=== PATIENT | male | born 1950 ===

== ENCOUNTER 2020-07-10 17:51 | Inpatient (IN) | payer MEDICARE ==
[2020-07-10 18:36] LABS: BASOPHILS 0.1 % (0-2); EOSINOPHILS 0.8 % (0-7); HEMATOCRIT 45.6 % (42.0-54.0); HEMOGLOBIN 15.3 g/dL (13.5-17.5); IMMATURE GRANULOCYTES 0.1 % (0-5); LYMPHOCYTES 33.4 % (15-50); MCH 32.1 pg (26.0-34.0); MCHC 33.6 g/dL (31.0-37.0); MCV 95.8 fL (80.0-100.0); MEAN PLATELET VOLUME 9.4 fL (7.4-10.4); MONOCYTES 6.2 % (2-11); NEUTROPHILS 59.4 % (40-80); PLATELET COUNT 310 10x3/uL (130-400); RBC 4.76 10x6/uL (4.20-6.10); RDW 13.5 % (11.5-14.5); WBC 8.9 10x3/uL (4.8-10.8)
[2020-07-10 18:53] LABS: ANION GAP 11.7 mmol/L (8-16); CALCIUM 9.3 mg/dL (8.5-10.1); CREATININE - SERUM 1.1 mg/dL (0.6-1.3); POTASSIUM - SERUM 3.7 mmol/L (3.5-5.1)
[2020-07-10 19:09] LABS: ALBUMIN 4.2 g/dL (3.4-5.0); BILIRUBIN - TOTAL 0.9 mg/dL (0.2-1.3); MAGNESIUM - SERUM 1.9 mg/dL (1.8-2.4); PROTEIN - SERUM 7.4 g/dL (6.4-8.2)
[2020-07-10 19:17] LABS: BILIRUBIN NEGATIVE (NEGATIVE); KETONE NEGATIVE (NEGATIVE); NITRITE NEGATIVE (NEGATIVE); UROBILINOGEN NORMAL mg/dL (< 2)
[2020-07-10 19:25] LABS: UDS - AMPHET NEGATIVE QUAL (NEGATIVE); UDS - BARB NEGATIVE QUAL (NEGATIVE); UDS - BENZO NEGATIVE QUAL (NEGATIVE); UDS - COCAINE NEGATIVE QUAL (NEGATIVE); UDS - OPIATE NEGATIVE QUAL (NEGATIVE); UDS - PCP NEGATIVE QUAL (NEGATIVE); UDS - THC NEGATIVE QUAL (NEGATIVE)
--- NOTE | 2020-07-10 22:14 | NUR ---
NEW ADNIT TO DR HERRMANN FROM [facility] RELATED TO DEPRESSION AND HALLUCINATIONS. PATIENT LIVES WITH PARTNER AT HOME. RECEIVED VIA WHEELCHAIR WITH ED STAFF AND HIS PARTNER AT HIS SIDE. CALM AND COOPERATIVE UPON ADMIT. PARTNER "POA" STATES HE IS A FULL CODE. PT IS RESTING IN BED WITH EYES OPEN AT THIS TIME.
[2020-07-10 22:22] VITALS: BP 97/75
[2020-07-10 22:35] VITALS: BP 96/75
[2020-07-10] MEDS ORDERED: FISH OIL 1,0001 CA1 PO (22:37)
[2020-07-10] MEDS ORDERED: CEREFOLIN TAB1 TAB PO (22:38)
[2020-07-10] MEDS ORDERED: PROTONIX40 MG PO (22:39)
[2020-07-10] MEDS ORDERED: NAPROSYN500 MG PO (22:40)
[2020-07-10 23:41] LABS: LDL-HDL RATIO 2.5 ratio (1.5-3.5)
[2020-07-11 09:22] VITALS: Wt 94.7 kg
[2020-07-11 09:31] VITALS: BP 140/70
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
[2020-07-11 20:13] VITALS: BP 101/68
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
--- NOTE | 2020-07-11 23:22 | NUR ---
B) Patient is alert and oriented to self, confused and calm this shift, no aggression noted, I) Administered scheduled medications as ordered, monitored for safety R) Medication compliant, now sleeping quietly in bed, P) Continue plan of care,
[2020-07-12 06:11] LABS: RAPID PLASMA REAGIN Non Reactive (Non Reactive)
--- NOTE | 2020-07-12 08:25 | PSY ---
PATIENT NAME:SHERRY SORENSEN MEDICAL RECORD: [id number] : 48 LOCATION:[facility] ADMISSION DATE: 07/10/20 ACCOUNT: [id number] PSYCHIATRIC EVALUATION DATE OF EVALUATION: 07/11/20 IDENTIFYING DATA: The patient is 70 years old and he is admitted to the hospital on a voluntary basis. CHIEF COMPLAINT: Confusion. HISTORY OF PRESENT ILLNESS: The patient was brought to the Emergency Department experiencing visual hallucinations and confusion. It was believed that the symptoms were related to an antidepressant he had recently been started on, but I think that they were just exacerbated by that. The patient has clear evidence of cognitive impairment and is disorganized, confabulating and delusional. He denies that he would seek to kill himself, although he reportedly had made recent statements to that effect. 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 PAST MEDICAL HISTORY: Unremarkable. The patient has no chronic medical illness other than some mild dyspepsia and generalized joint discomfort associated with aging. 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 This did not interfere with his social or occupational functioning. He stopped drinking about a year ago. FAMILY HISTORY: Unknown. ALLERGIES: ATIVAN AND WELLBUTRIN, ALTHOUGH IN ACTUALITY THE WELLBUTRIN JUST SIMPLY WAS NOT TOLERATED, IT IS NOT A TRUE ALLERGY AND I AM NOT SURE WHAT HAPPENED WITH THE ATIVAN. CURRENT MEDICATIONS: Naprosyn p.r.n., fish oil, Protonix, and vitamin B12. SOCIAL HISTORY: The patient is originally from [place], [place]. 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 After that, he was accepted to the [employer] from which he graduated with an ANGIE. 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 He is and he about 11 years ago. He has been living with another woman since then and she is his POA. He functioned at a very high level of social and occupationally despite his drinking through his adult life. MENTAL STATUS EXAMINATION: The patient is awake, alert and oriented to person and place, but not fully to time or situation. His mood is flat. His affect is constricted. Thought processes are disorganized and there is clear delusional content. Memory, concentration, and abstraction abilities are impaired. He denies that he would seek to harm himself or others. He denies overt psychotic symptoms, although he clearly is displaying them. ASSESSMENT: AXIS I: Major neurocognitive disorder of the Alzheimer's type. AXIS II: None. AXIS III: Osteoarthritis. AXIS IV: Moderate stressors. AXIS V: Global assessment of functioning is 35. PLAN: At this time, the patient is admitted to the hospital secondary to confusion with associated perceptual changes. This is related to an underlying dementing illness. The type is not entirely certain, most likely it is Alzheimer's; however, there is clearly a substantial alcohol component to this. TRANSINT:[id number] Voice Confirmation ID: [id number] DOCUMENT ID: [id number] ELSA HERRMANN MD at 0825 CC: [id number] DICTATION DATE: 07/11/20 1546 HYDROCRANE OPERATOR: 07/11/20 1615 [facility] [address] [place] [address]
[2020-07-12 08:42] VITALS: BP 117/77
--- NOTE | 2020-07-12 11:14 | NUR ---
The patient is awake and he is confused, he has poor insight into his situation. He has poor short term memory, he is talking nonsensical. He has asked this nurse "What is your social security number?" Then he tells you his number. He said he did not want to take his medication until he spoke to Rosetta and it had to come from Dr. Brown. He looked at his pills then he looked at another nurse and said "She's already given me the medication." The other nurse has not given her any medication. Provide prescribed meds. The patient refused his meds, will crush and put them in his coffee. He likes coffee, but he took one sip and that is all. Called Dr. Barclay and got a nicotine patch order. The patient ambulates, toilets, and feeds himself. Continue POC.
--- NOTE | 2020-07-12 11:32 | NUR ---
nurse spoke with pts at this time. passcode given. nruse gave update on pts behavior. nurse noted pt being paranoid about staff members, taking medications and asking for social security numbers. staff attemptedt to redirect pt and unable to do so. pt stated he needed to speak with baltazar before he could do anyting. she inquired if he knew it was visitation today?" nurse stated he was very confused and did not understand what day of the week it was. he would be okay to have visitors at that time today. she verbalizied understanding.
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
--- NOTE | 2020-07-12 15:00 | NUR ---
The patient is calming, he sat in a recliner and closed his eyes. Continue to monitor.
--- NOTE | 2020-07-12 16:30 | NUR ---
The patient's spouse is here and she said "He still doesn't have a nicotine patch." Explained to her that he is refusing. Did go and get the nicotine patch while the spouse is here and she moved his shirt back and the nicotine patch was applied to his upper back in between his shoulder blades.
[2020-07-12 20:09] VITALS: BP 128/75
--- NOTE | 2020-07-13 01:15 | NUR ---
B) Patient is alert and oriented to person, calm and cooperative this shift, confused and does not understand why he is here. I) Administered scheduled medications as ordered, monitored for safety R) medication compliant, no hallucinations noted, P) Continue plan of care.
--- NOTE | 2020-07-13 07:54 | NUR ---
The patient is awake, he is confused, he knows his name. He has poor insight into his situation. He ambulates, eats, and toilets independently. Provide prescribed meds. The patient refuses, but if crushed in food or drink he does take them. He has not shown aggression at this time. Monitor his mood and behavior. Continue POC.
--- NOTE | 2020-07-13 08:38 | PN ---
PATIENT:SHERRY SORENSEN MEDICAL RECORD: [id number] LOCATION:[facility] ADMISSION DATE: 07/10/20 PROGRESS NOTE DATE OF SERVICE: 07/12/2020 SUBJECTIVE: The patient's case was discussed with staff. He has no new complaint. OBJECTIVE: The patient is calmer now that he has his Habitrol patch. He is very confused. He is only partially oriented. He has not required p.r.n. medication today. ASSESSMENT: Dementia. PLAN: Current medicines have been reviewed and will be maintained. His prognosis is very guarded. I do believe his dementia is advanced. TRANSINT:[id number] Voice Confirmation ID: [id number] DOCUMENT ID: [id number] ELSA HERRMANN MD at 0838 CC: [id number] DICTATION DATE: 07/12/201735 CLINIC OFFICE COORDINATOR: 07/12/20 174 ADM IN [facility] [address] [id number]
--- NOTE | 2020-07-13 09:16 | NUR ---
BROADCASTING EQUIPMENT MECHANIC CALLED PATIENT'S POAMORAIMA, tO ALERT ON HOW PATIENT REACTED TO 3 PAGE LETTER SHE DROPPED OFF. BROADCASTING EQUIPMENT MECHANIC EXPLAINED THE DISEASE PROCESS, COMMUNICATION STYLES NEEDED FOR DISEASE,AND THE WAY THE PATIENT PROCESSES INFORMATION. AFTER RECEIVING THE LETTER PATIENT THOUGHT poa WAS GOING TO DIVORCE HIM, STARTED PACING AND BECAME ESCALATED. BROADCASTING EQUIPMENT MECHANIC ADVISED THAT LETTERS AND DROP-OFFS BETWEEN VISITATIONS WOULD NOT BE ADVISABLE AT THIS TIME. POA STATED SHE DID NOT KNOW WHAT WAS GOING ON. BROADCASTING EQUIPMENT MECHANIC EXPLAINED THAT SHE COULD ASK FOR MD CONVERSATION AT ANY TIME AND GET UPDATE ON PATIENT FROM A NURSE AT ANY TIME ON THE UNIT. POA VOICED UNDERSTANDING.
[2020-07-13 09:36] VITALS: BP 135/93
--- NOTE | 2020-07-13 10:41 | NUR ---
The patient is getting very anxious, apparently his wrote him a letter and it upset the patient and now he is trying to get out of here, he is pacing, checking the doors and saying his is going to divorce him. The letter has no indication of divorce, but it does talk about his recent behavior changes related to his neurocognitive disorder. Provided Haldol 2 mg po crushed in his coffee and he drank it all. Will monitor his mood and behavior.
--- NOTE | 2020-07-13 11:30 | NUR ---
The patient is pacing and has not calmed, but sat down by him while he stood, asked him to sit by me and he said "No, I do better standing." Spoke to him about his significant other's letter and let him know Octavio loves him and that she does not want to get a divorce." He said "I am glad there can be saving after all folks." As he turned around and told the other patients. Then he said he had to hurry up and go to the bank. After that the words became word salad and it was difficult to understand except that he wanted to get to the bank. Will continue to monitor his mood and behavior.
--- NOTE | 2020-07-13 12:11 | NUR ---
Called and spoke to the patient's significant other, she wanted to know medications. Spoke to her and asked her if she wanted to know the meds he is on and she said "No, I just want to know what we're dealing with." Went over Dr. Leach's diagnosis. She began to cry and said "I would never hurt him." She was referring to the letter she dropped off for him today. Explained to her that we knew her intentions were good and that she was dealing with something new. She said "He was fine a week ago." Explained to her that dementia and alzheimers can go quickly or slowly in the different phases. She cried and said "Well, I guess I better call his son." Explained to her "It isn't like he is going to soon." She said "Yes, but he is not the same person." Explained to her "Yes, that is true he is no lomger the same person she has known." Explained to her and reiterated what Chris CAMPOS said to her earlier and told her to take this time to herself and educate herself on the disease and the phases as well as take time to care for herself. Let her know that staff are here / and that if she had questions or concerns she may call. She said "Thank you."
--- NOTE | 2020-07-13 14:25 | NUR ---
Nutrition Follow-up: Overall poor PO intake. Diet: Regular PO intake: 13% avg x 6 meals; 100% snacks Wt: 209# (07/11) No new labs Meds noted: vit B1, folate, fish oil, vit D, Protonix -Encourage PO intake and honor food preferences. -+Glucerna with meals (A1C 6.5). -Monitor wt. -RD following.
--- NOTE | 2020-07-13 16:54 | NUR ---
Dr. Barclay here and she requested to Aaron Lema RN that she would like the patient to have a daily fsbs in the am and she would like him to have one now as well.
[2020-07-13 20:00] VITALS: BP 152/82
--- NOTE | 2020-07-13 20:15 | NUR ---
B) RECEIVED IN DAYROOM SITTING IN CHAIR SOCIALIZING WITH PEERS. HE IS ORIENTED TO SELF ONLY, AND NO AGGRESSION NOTED. CALM AND COOPERATIVE WITH CARE AND ASSESSMENT. I) ADMINISTERED SCHEDULED MEDICATIONS ORDERED. REDIRECT AND REORIENT NEEDED. R) MEDICATION COMPLIANT. DIFFICULT TO REDIRECT AT TIMES. P) CONTINUE PLAN OF CARE.
--- NOTE | 2020-07-14 07:45 | NUR ---
PT WANDERING IN HALLWAY LOOKING FOR A WAY OUT OF THE AIRPORT AT THIS TIME. PT IS CONFUSED AND ALERT TO SELF ONLY. REDIRECT AND REORIENT NEEDED. PT AMBULATES AND CAN MAKE SOME NEEDS KNOWN. PT CAN BE DIFFICULT TO REDIRECT AT TIMES. ENCOURAGEMENT NEEDED FOR MEDICATION ADMINISTION. PT IS CALM AND FRIENDLY WITH STAFF AND PEERS. NO AGGRESSION NOTED. PREVIOUS SHIFT REPORTED A FAMILY MEMBER WAS INQUIRING ABOUT DISCHARGE THIS SHIFT. WILL CONT TO MONITOR SITUATION. WILL CONT PLAN OF CARE.
--- NOTE | 2020-07-14 09:10 | NUR ---
MORAIMA RAO CALLED THIS A.M. PASSCODE GIVEN. SHE STATED SHE WANTED TO DISCHARGE PT THIS A.M. DUE TO PTS CONDITION BEING WORSE ON THE FACT THAT HE WAS NOT SUPPOSE TO BE ON BENZOS AND HE SHOULD NEVER HAVE BEEN ON THE KL[place]IN. SHE STATED SHE WAS IN TOWN AND WANTED TO PICK HIM UP TODAY. NURSE EDUCATED SHE WOULD SPEAK WITH THE DOCTOR AND IF THE DOCTOR DOES NOT AUTHORIZE THE DISCHARGE IT WOULD BE WHAT WAS CALLED A AMA DISCHARGE. SHE VERBALIZIED UNDERSTANDING. WILL NOTIFY DOCTOR OF MISS RAO WISH.
--- NOTE | 2020-07-14 09:15 | NUR ---
Alanna GOTTI APRN CALLED MISS MORAIMA RAO IN REQUEST ON AMA.
--- NOTE | 2020-07-14 09:48 | NUR ---
PT DISCHARGED AMA WITH MORAIMA RAO THIS SHIFT. PT TOLERATED DISCHARGE SEMI-WELL. PT GOT TO THE DOOR AND STARTED CRYING. NURSE WENT OVER AMA RELEASE FORM AND SHE STATED UNDERSTANDING AND SIGNED FORM. MISS RAO GAVE NURSE A LETTER SHE TYPED STATING SHE THE REASONS FOR AMA. NURSE ACCEPTED. ALL OF PTS BELONGINGS SENT WITH PT. SHE ASKED IF THERE WAS ANYTHING ELSE WE NEEDED. NURSE STATED NO WE DID NOT REQUIRE ANYTHING FROM HER. SHE HAD THE UNIT NUMBER AND WE DID HAVE HERS ON FILE. PT AMBULATED TO PRIVATE CAR WITH MISS RAO.
[2020-07-14 10:05] VITALS: BP 120/84
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
== END 2020-07-14 09:50 | disposition left against medical advice (07) | DRG 884 ==
LOC: D.ER 17:51 → D.PSYCH 21:23
PROVIDERS: Family Medicine; ADMIT Psychiatry & Neurology Psychiatry; ATTEND Psychiatry & Neurology Psychiatry
DX: F02.81 Dementia in other diseases classified elsewhere, unspecified severity, with behavioral disturbance (principal); R44.3 Hallucinations, unspecified; F32.89 Other specified depressive episodes; R10.13 Epigastric pain; M19.90 Unspecified osteoarthritis, unspecified site; F17.210 Nicotine dependence, cigarettes, uncomplicated; R73.9 Hyperglycemia, unspecified; G30.9 Alzheimer's disease, unspecified